=== PATIENT | female | born 1965 | race Caucasian/White ===

== ENCOUNTER → 2018-05-15 | Outpatient (CLI) | payer BC ==
--- NOTE | 2018-05-15 20:26 | Diagnostic Imaging Report ---
INDICATION: Right breast carcinoma. This study is performed to evaluate the left breast. Correlation is made with left breast diagnostic mammogram earlier the same day. FINDINGS: Sonographic interrogation of the upper-outer left breast was performed. There is a somewhat ill-defined hypoechoic nodule at the 2 o'clock location of the left breast approximately 6 cm from the nipple. This measures 3 mm x 5 mm. No definite internal blood flow is identified; however, lesion does appear to be slightly taller than it is wide. No significant posterior acoustic enhancement is seen. No other abnormalities are identified. IMPRESSION: Hypoechoic nodule at the 2 o'clock location of the left breast, 6 cm from the nipple. This likely accounts for the nodular density noted mammographically. This cannot be characterized as purely benign and therefore small breast neoplasm cannot be entirely excluded. Tissue sampling could be performed. ACR BI-RADS Category 4: Suspicious abnormality. Dictated by: Dictated on workstation # [id number]
--- NOTE | 2018-05-15 20:44 | Diagnostic Imaging Report ---
INDICATION: Right breast carcinoma. COMPARISON: No prior studies are available for comparison. EXAMINATION: Unilateral left 2D and 3D diagnostic mammography was performed with CAD. This included conventional CC, MLO, and 90-degree lateral views. In addition, exaggerated CC as well as spot compression MLO and exaggerated CC views were obtained. FINDINGS: There is a fairly well-circumscribed nodular density in the upper-outer left breast at posterior depth, approximately 8-9 cm from the nipple. No other masses are seen. There are benign calcifications. No suspicious microcalcifications are seen. The left axilla is unremarkable. IMPRESSION: Circumscribed nodular density in upper-outer left breast at posterior depth. This has fairly benign features and may represent an intraparenchymal lymph node. Further evaluation of this area with ultrasound is recommended and will be performed today. ACR BI-RADS Category 0: Incomplete. (Needs additional imaging evaluation). Result letter will be mailed to the patient. Note: At least 10% of breast cancer is not imaged by mammography. Dictated by: Dictated on workstation # [id number]
== END ==
LOC: RAD 13:15
PROVIDERS: ATTEND Internal Medicine Hematology & Oncology
DX: C50.911 Malignant neoplasm of unspecified site of right female breast (principal); N63.21 Unspecified lump in the left breast, upper outer quadrant; N63.10 Unspecified lump in the right breast, unspecified quadrant
CPT/HCPCS: 76642

== ENCOUNTER → 2018-05-19 | Outpatient (CLI) | payer BC ==
[~2018-05-19] MED LIST: CATHETER FLUSH 10 ML SYR IV PRN
[2018-05-19 12:20] LABS: BASOPHILS # (AUTO) 0.1 10^3/uL (0.0-0.1); BASOPHILS % (AUTO) 1 % (0-10); EOSINOPHILS % (AUTO) 0 % (0-10); HEMATOCRIT 39 % (35-52); HEMOGLOBIN 12.9 G/DL (11.5-16.0); LYMPHOCYTES # (AUTO) 1.5 X 10^3 (1.0-4.0); LYMPHOCYTES % (AUTO) 15 % (12-44); MEAN CORPUSCULAR HEMOGLOBIN 28 PG (25-34); MEAN CORPUSCULAR HGB CONC 33 G/DL (32-36); MEAN CORPUSCULAR VOLUME 85 FL (80-99); MONOCYTES # (AUTO) 0.8 X 10^3 (0.0-1.0); MONOCYTES % (AUTO) 8 % (0-12); NEUTROPHILS # (AUTO) 7.9 X 10^3 (1.8-7.8); NEUTROPHILS % (AUTO) 77 % (42-75); PLATELET COUNT 545 10^3/uL (130-400); WHITE BLOOD COUNT 10.2 10^3/uL (4.3-11.0)
--- NOTE | 2018-05-19 15:02 | Diagnostic Imaging Report ---
PROCEDURE: CT chest with contrast, CT abdomen and pelvis with and without contrast. TECHNIQUE: Pre and post intravenous contrast axial imaging of the abdomen and pelvis and post contrast axial imaging of the chest were performed. Auto Exposure Controls were utilized during the CT exam to meet ALARA standards for radiation dose reduction. INDICATION: Breast carcinoma. CT CHEST: There is a large mass involving the right breast which extends to the skin surface and appears to be causing skin ulceration. This measures approximately 7.0 x 4.7 cm. Enlarged lymph nodes in the right axilla are noted, largest measuring 3.5 x 1.9 cm. No internal mammary lymphadenopathy is seen. The left axilla is unremarkable. Large right paratracheal lymph node measures 2.5 x 1.6 cm. Left hilum is unremarkable. There is irregular mass-like density in the right upper lobe extending to the right hilum measuring 5.3 x 4.9 cm. This is likely combination of a right hilar mass with postobstructive pneumonitis. Subcarinal fullness is also present with subcarinal node measuring 2.8 x 1.2 cm. There appears to be subsegmental atelectasis both lung bases. Trace pleural fluid is seen bilaterally. No pericardial fluid is identified. Evaluation of bony structures demonstrates innumerable lytic lesions. A lytic lesion of a sternum. There are osteolytic lesions throughout the thoracic spine as well as numerous bilateral ribs. IMPRESSION: 1. Large right breast mass. There is a right axillary lymphadenopathy as well as mediastinal and right hilar lymphadenopathy resulting in postobstructive pneumonitis in the right upper lobe. There are new innumerable osteolytic lesions throughout the thoracic spine bilateral ribs and sternum. Features are consistent with right breast carcinoma and metastatic disease. CT ABDOMEN AND PELVIS: Liver contains innumerable low-density masses consistent with hepatic metastatic disease. Largest lesion is in the right lobe proximal to 4.6 x 4.3 cm. Pancreas and spleen are unremarkable. No definite adrenal mass is seen. Kidneys are unremarkable. Aorta is non-aneurysmal. There are some prominent lymph nodes in the central retroperitoneum left para-aortic region. Left para-aortic node measures 1.5 x 1.0 cm. Bowel loops are normal caliber. No free fluid in abdomen is seen. There is some free fluid in the pelvis. No definite inguinal lymphadenopathy is seen. There appear to be some prominent external iliac lymph nodes. Bony structures demonstrate innumerable osteolytic lesions throughout the lumbar spine as well as involving the bony pelvis including the sacrum. There are osteolytic lesions involving the femoral heads and necks bilaterally. IMPRESSION: 1. Numerous hepatic lesions consistent with hepatic metastatic disease. There is central retroperitoneal lymphadenopathy suggestive of metastatic disease. Innumerable osteolytic lesions throughout the lumbar spine, pelvis and bilateral hips is noted consistent with osseous metastatic disease. Dictated by: Dictated on workstation # [id number]
--- NOTE | 2018-05-19 17:11 | Diagnostic Imaging Report ---
INDICATION: Whole body pain. Patient has right breast mass. TECHNIQUE: Patient was administered 26.8 mCi F-18 FDG intravenously and whole body imaging was performed after a three-hour delay. COMPARISON: No prior bone scan is available for comparison. FINDINGS: There is uptake of activity by the axial and appendicular skeleton. There is uptake by both kidneys with excretion into the urinary bladder. Innumerable foci of abnormal tracer accumulation are seen. There is abnormal uptake within the calvarium as well as bilateral ribs, thoracic and lumbar spine, as well as the bony pelvis. There are abnormal foci within the bilateral femora. Features are most consistent with osseous metastatic disease. This does correlate with multiple osteolytic lesions noted on CT study earlier the same day. IMPRESSION: Findings consistent with osseous metastatic disease. Dictated by: Dictated on workstation # [id number]
== END ==
LOC: CARD 12:00
PROVIDERS: ATTEND Internal Medicine Hematology & Oncology
DX: C50.911 Malignant neoplasm of unspecified site of right female breast (principal); M54.9 Dorsalgia, unspecified; M89.9 Disorder of bone, unspecified; K76.9 Liver disease, unspecified
CPT/HCPCS: 36415; 71260; 74178; 78306; 85025

== ENCOUNTER 2018-05-22 08:22 | Day surgery (SDC) | payer BC ==
[~2018-05-22] VITALS: Ht 168.9 cm; Wt 66.5 kg
[2018-05-22] MEDS ORDERED: ceFAZolin 2 GM IV Premixed 50 ML ONE (08:56)
[2018-05-22] MEDS ORDERED: 0.9% SODIUM CHLORIDE PF INJ 20 ML VIAL ONE (08:57)
[2018-05-22] MEDS ORDERED: LIDOCAINE 1% INJ 20 ML 20 ML VIAL ONE (08:57)
[2018-05-22] MEDS ORDERED: HEParin (CENTRAL IV FLUSH) 500 UNIT/5 ML SYR ONE (08:57)
[2018-05-22] MEDS ORDERED: BUP/EPI 0.5% 1:200,000 (SENSORCAINE) 30 ML VIAL ONE (08:57)
[2018-05-22] MEDS ORDERED: LACTATED RINGERS 1,000 ML IV PRN (08:59)
[2018-05-22] MEDS ORDERED: MIDAZOLAM 2 MG/2 ML (VERSED) VIAL IV ONE (09:00)
[2018-05-22] MEDS ORDERED: MIDAZOLAM 2 MG/2 ML (VERSED) VIAL ONE (09:16)
[2018-05-22] MEDS ORDERED: LIDOCAINE PF 2% 5 ML (XYLOCAINE) VIAL ONE (09:16)
[2018-05-22] MEDS ORDERED: proPOfol 200 MG/20 ML (DIPRIVAN) VIAL IV ONE (09:16)
[2018-05-22] MEDS ORDERED: ceFAZolin 2 GM IV Premixed 50 ML IV ONE (09:30)
[2018-05-22] MEDS ORDERED: HYDR-3820 PO (10:09)
--- NOTE | 2018-05-22 10:09 | Progress Note-Post Operative ---
Post-Operative Progess Note Surgeon (s)/Carry Out Clerk (s) Surgeon RADHA CORREIA DO Carry Out Clerk: none Pre-Operative Diagnosis Venous Insufficiency, Right Breast CA Post-Operative Diagnosis Same Procedure & Operative Findings Date of Procedure 05/22/18 Procedure Performed/Findings Kendrick-cath insertion Anesthesia Type IV sedation by Anesthesia Estimated Blood Loss Estimated blood loss (mL): less than 5ml Specimens/Packing Specimens Removed none RADHA CORREIA DO May 22, 2018 10:08
--- NOTE | 2018-05-22 10:10 | Discharge Inst-Surgical ---
Discharge Inst-Surgical Depart Medication/Instructions New, Converted or Re-Newed RX: RX Given to Pt/Family Patient Instructions Follow up Appt: Make appointment for 1 week. [phone] Instructions: No lifting greater than 20 pounds. No strenuous activity. May shower in 24 hours, no tub bath or soaking. Use incentive spirometer at home as directed. No Smoking Skin/Wound Care: May remove bandages in am. You need to leave the Dermabond on incision it will fall off on it's own. Symptoms to Report: Appetite Changes, Extremity Discoloration, Numbness/Tingling, Swelling Increased , Bleeding Excessive, Eyesight Changes, Pain Increased, Urine Color Change, Constipation(Persistent), Fever over 101 degree F, Pain/Pressure in chest, Urinating Difficulty, Cough Up/Vomit Blood, Heart Beat Irreg/Pounding, Pain/ Pressure in jaw, Cramps in feet or legs, Lightheadedness, Pain/Pressure in shoulder, Diarrhea(Persistent), Memory Changes Suddenly, Questions/Concerns, Weight gain consecutive days, Dizziness/Fainting, Nausea/Vomiting, Shortness of Breath, Weight gain over 2 pounds If questions or concerns contact your physician Or seek help at emergency department. Activity Activity as Tolerated: Yes Driving Instructions: No Driving/Refer to Dr. Bowden Discharge Diet: No Restrictions Diet After 24 Hours: Clear Liquid if Nauseous If Any Problems/Questions/Issu: Contact Your Physician, Go to Emergency Room Skin/Wound Care Infection Signs and Symptoms: Increased Redness, Foul Odor of Wound, Increased Drainage, Skin Itchy or Has a Rash, Increased Swelling, Temperature Above 101 F Bathing Instructions: Shower Stitches/[place]/Dermabond Dis: Dermabond Ice Pack: Ice On and Off Site RADHA CORREIA DO May 22, 2018 10:10
[2018-05-22] MEDS ORDERED: morphine INJ 10 MG/ML 1ML (SYR OR VIAL) IVP ONE (10:15)
[2018-05-22] MEDS ORDERED: ONDANSETRON 4 MG/2 ML (SDV) Z0FRAN IVP PRN (10:15)
[2018-05-22 10:19] VITALS: BP 115/72
[2018-05-22 10:40] VITALS: BP 118/80
--- NOTE | 2018-05-22 10:43 | Diagnostic Imaging Report ---
INDICATION: Undergoing line placement.. TECHNIQUE: Single intraprocedural images left upper chest CORRELATION STUDY: None FINDINGS: Intraprocedure fluoroscopy utilized by Dr. Castillo. No radiologist present. Fluoroscopy utilized during placement of a left subclavian Gorohe-i-Ennb catheter. The tip over the right paranasal region. There is additional linear tube like density over the of the axilla just lateral to the scapula. Fluoroscopy Time: 4 seconds IMPRESSION: 1. Fluoroscopy utilized for placement left subclavian chest port catheter. 2. Additional tubular-like density of the left axillary region, nonspecific etiology or significance. Dictated by: Dictated on workstation # [id number]
[2018-05-22 11:10] VITALS: BP 116/78
[2018-05-22 11:40] VITALS: BP 120/71
[2018-05-22 12:10] VITALS: BP 120/71
--- NOTE | 2018-05-22 13:47 | Anesthesia-General Post-Op ---
General Patient Condition Mental Status/LOC: Same as Preop Cardiovascular: Satisfactory Nausea/Vomiting: Absent Respiratory: Satisfactory Pain: Controlled Complications: Absent Post Op Complications Complications None Follow Up Care/Instructions Patient Instructions None needed. Anesthesia/Patient Condition Patient Condition Patient is doing well, no complaints, stable vital signs, no apparent adverse anesthesia problems. No complications reported per nursing. MELISA DEL TORO CRNA May 22, 2018 13:47
--- NOTE | 2018-05-22 17:31 | OPERATIVE REPORT ---
DATE OF SERVICE: 05/22/2018 PREOPERATIVE DIAGNOSES: 1. Venous insufficiency. 2. Right breast cancer. POSTOPERATIVE DIAGNOSES: 1. Venous insufficiency. 2. Right breast cancer. PROCEDURE: Insertion of Port-A-Cath left anterior chest wall, left subclavian vein. SURGEON: Abhijit Castillo DO CAREER DEVELOPMENT CONSULTANT: None. ANESTHESIA: IV sedation by the anesthesiologist. SPECIMENS: None. BLOOD LOSS: Less than 5 mL. FLUIDS: Per anesthesia. POSTOPERATIVE CONDITION: Stable. INDICATION FOR PROCEDURE: The patient is a 53-year-old female, who unfortunately has metastatic breast cancer and needs a Port-A-Cath placed for long-term chemotherapy secondary to venous insufficiency. FINDINGS: The patient had Port-A-Cath placed in the left anterior chest wall, left subclavian vein. PROCEDURE NOTE: After informed consent was obtained, the patient was brought to the operating room, placed on table in supine position. She was sterilely prepped and draped in normal fashion. Local lidocaine was used to infiltrate the skin in left anterior chest wall towards the clavicle as well as in the area to create a pocket for the port. She was placed slightly Trendelenburg and then an 18-gauge fine needle was advanced with negative inspiration and cannulated the left subclavian vein on the first attempt. Good flash of blood, removed the syringe, placed a guidewire down the needle using Seldinger technique, it went in easily, checked fluoroscopy, it was in good position. It was actually in the heart, clamped this in place. I made a stab incision with #11 blade along the guidewire and then in the left anterior chest wall made another incision with #11 blade, carried down through skin into subcutaneous tissue, then deepened down to subcutaneous tissue with Bovie electrocautery down to the fascia of the pectoralis muscle and created a pocket bluntly as well for the port. Then, tunneled a tunnel from the stab incision into this pocket and then over the guidewire placed a dilator using Seldinger technique, checked with fluoroscopy, it was in good position, removed the inner portion of the dilator as well as the guidewire and then placed the catheter down the dilator sheath using the Seldinger technique, it went in easily, checked with fluoroscopy, it was in good position. Cut the catheter attached to the port and then placed a locking mechanism, placed the port into the pocket previously created, sutured in place with 3-0 Prolene suture and then accessed the port with a Salomon needle, got a good flash of blood, then easily flushed with saline and then aspirated and flushed easily with 2 mL of heparin. I then took another picture of fluoroscopy. There was no band or kink and the catheter appeared to be in good position. I then closed the incision closing the deep tissue with 3-0 Vicryl, 2 interrupted suture and I then closed the skin with 4-0 undyed Monocryl with 3 interrupted subcuticular stitches and then closed the stab incision with a single interrupted 4-0 undyed Monocryl subcuticular stitch. Area was cleaned and dried. Dermabond was placed as well as then a pressure dressing. The patient tolerated the procedure and she was then transferred to recovery room in stable condition. Sponge, instrument and needle count were correct at the end of the case. Job ID: [id number] DocumentID: [id number] Dictated Date: 05/22/2018 10:07:48 Console Assembler Date: 05/22/2018 17:30:49 Dictated By: DO CHANTAL STALLINGS
== END 2018-05-22 12:10 | disposition home or self-care (01) ==
LOC: EDBD → SDC 08:22
PROVIDERS: ATTEND Surgery
DX: I87.2 Venous insufficiency (chronic) (peripheral) (principal); C50.411 Malignant neoplasm of upper-outer quadrant of right female breast; C79.51 Secondary malignant neoplasm of bone; C78.7 Secondary malignant neoplasm of liver and intrahepatic bile duct; Z17.0 Estrogen receptor positive status [ER+]
CPT/HCPCS: 87081; 94664

== ENCOUNTER → 2018-05-27 | Outpatient (CLI) | payer BC ==
[~2018-05-27] MED LIST changes: -CATHETER FLUSH 10 ML SYR IV PRN; +HYDR-3820 PO
--- NOTE | 2018-05-27 12:18 | Diagnostic Imaging Report ---
PROCEDURE: MRI lumbar spine. TECHNIQUE: Multiplanar, multisequence MRI of the lumbar spine was performed without contrast. INDICATION: Breast carcinoma with bone metastases. Patient complains of back pain as well as weakness. Studies performed for further evaluation. COMPARISON: No prior studies are available for comparison. FINDINGS: There are innumerable marrow replacing lesions at all levels of the lumbar spine as well as the sacrum. There is involvement of vertebral bodies as well as posterior elements. There is also involvement of the visualized portions of the pelvis and sacrum. Many of the lesions are somewhat expansile. Vertebral body heights are maintained without evidence of an acute compression fracture. There is some generalized degenerative disc disease. The conus is unremarkable at the L1 level. T12-L1: There is some expansile tumor within the right and posterior aspect of the T12 vertebral body. This does produce some slight extension posteriorly indenting the right ventral aspect of the thecal sac but no significant canal narrowing is seen. There is involvement of the right pedicle at this level as well. No central canal or neural foraminal narrowing is seen. L1-L2: Central canal and neural foramina are patent. L2-L3: Unremarkable. L3-L4: Unremarkable. L4-L5: There is some mild wide-based disc bulge indenting the ventral thecal sac but no significant central canal or neural foraminal narrowing is seen. L5-S1: Central canal and neural foramina are unremarkable. Paraspinous tissues demonstrate numerous lesions in the liver. IMPRESSION: Diffuse osseous metastatic disease involving the lumbar spine, sacrum and bony pelvis. No definite central canal or neuroforaminal involvement by tumor is identified. Dictated by: Dictated on workstation # [id number]
--- NOTE | 2018-05-27 12:20 | Diagnostic Imaging Report ---
INDICATION: Breast carcinoma and back pain with bone metastases. The study is performed to evaluate for cord compression. TECHNIQUE: Multiplanar and multisequence imaging of the thoracic spine was performed without contrast. FINDINGS: Study is significantly compromised by patient motion. There are innumerable marrow-replacing lesions at all levels of the lower cervical and thoracic spine, consistent with osseous metastatic disease. There appears to be significant compression deformity involving the T5 vertebral body which is vertebra plana. Abnormal soft tissue tumor extension is seen posteriorly into the central canal. Tumor extension posteriorly into the canal measures 2.5 cm cephalocaudal x 1.1 cm AP x approximately 2.6 cm transverse. This does contact the thoracic spinal cord and displaces the spinal cord posteriorly. No definite signal changes within the spinal cord are identified. Spinal canal is significantly narrowed however at this level to approximately 4 mm AP diameter. There is tumor involvement involving the posterior elements at numerous levels throughout the thoracic spine but no other levels of central canal involvement are seen. IMPRESSION: Diffuse osseous metastatic disease. There is compression fracture of T5 vertebral body with soft tissue tumor extension beyond the T5 vertebral body posteriorly into the central canal. Tumor does impress the spinal cord at this level and displaces the spinal cord posteriorly. Severe narrowing of the central canal is noted at 4 mm AP diameter. No definite signal changes within the cord are identified at this time. Dictated by: Dictated on workstation # [id number]
--- NOTE | 2018-05-27 13:05 | Diagnostic Imaging Report ---
INDICATION: Bone metastases. TIME OF EXAM: 12:15 p.m. EXAMINATION: Multiple views of bilateral humeri were obtained. FINDINGS: Alignment at the shoulder and elbow appears normal bilaterally. There are small lucencies identified in the proximal shafts of both humeri suspicious for osteolytic lesions. No pathologic fracture is identified however. IMPRESSION: Small lucencies bilaterally, suspicious for osteolytic metastatic disease. No pathologic fracture is detected. Dictated by: Dictated on workstation # [id number]
--- NOTE | 2018-05-27 13:18 | Diagnostic Imaging Report ---
INDICATION: Bone metastases. Time of exam 12:08 PM Multiple views bilateral femora were obtained. There is an ill-defined osteolytic lesion involving the midshaft of the right femur measuring approximately 5 cm in size. This is consistent with a metastatic lesion. There is endosteal scalloping present. No definite periosteal reaction or bony destructive changes are seen. No pathologic fracture is seen. Remainder of the femora do show some occasional very small lucencies in the proximal aspects bilaterally, indeterminate. Alignment at both hips and knees appear normal. There is a lucency in the bony pelvis bilaterally as well suggestive of osteolytic metastases. IMPRESSION: Dominant ill-defined osteolytic lesion of the midshaft right femur with endosteal scalloping. This is consistent with a osteolytic metastasis. No pathologic fracture is identified. There are additional smaller indeterminate lucencies bilaterally as well which may represent metastatic lesions. Dictated by: Dictated on workstation # [id number]
--- NOTE | 2018-05-27 14:28 | Diagnostic Imaging Report ---
PROCEDURE: MR imaging cervical spine without contrast. TECHNIQUE: Multiplanar/multisequence MR imaging of the cervical spine was performed without contrast. INDICATION: Breast cancer with history of metastatic disease to bone. Now complaining of neck pain. FINDINGS: Multiple marrow lesions involving vertebral bodies and posterior elements correlate with areas of abnormal uptake on the bone scan of 05/19/2018 and are consistent with multifocal metastatic disease. Lesions involve the left occipital condyle, right C1 lateral mass, right C2 lateral mass, C2 posterior elements, C3 vertebral body, C6 vertebral body eccentric to the left, and the C7 body as well as multiple upper thoracic levels. There is a pathological fracture at the T3 level with at least mild retropulsion. At the very caudal margin of the [id number] posterior to the T4 vertebral body, there is retropulsion of the cortices and likely ventral epidural extension of tumor which impinges upon and flattens the cord at that level. A dedicated thoracic MRI is recommended as further evaluation and, if tolerable, the administration of IV contrast would assist in evaluating the intracanalicular suspected tumor. Within the cervical spine, there is no cord compression or high-grade stenosis. Degenerative disc bulge and endplate osteophytes mildly narrow the canal at C3-4, moderately stenose the canal at C5-6, and mildly stenose the canal at C6-C7. IMPRESSION: 1. Multi-level cervical metastatic disease, presumed without pathological cervical fracture or cervical cord compression. 2. Extensive involvement of the partially visualized upper thoracic spine with suspicion for cord compression at the T4 and T5 levels extending below the [id number]. A dedicated thoracic MRI spine with and without contrast is recommended. 3. I have left a message on the ordering physician's phone mail service and will continue to call to ensure his receipt of this report. Dictated by: Dictated on workstation # [id number]
== END ==
LOC: RAD 10:53 → EDBD 10:53
PROVIDERS: ATTEND Radiology Radiation Oncology
DX: C79.51 Secondary malignant neoplasm of bone (principal); C50.811 Malignant neoplasm of overlapping sites of right female breast; S22.050A Wedge compression fracture of T5-T6 vertebra, initial encounter for closed fracture; M48.04 Spinal stenosis, thoracic region; D36.7 Benign neoplasm of other specified sites; M89.9 Disorder of bone, unspecified
CPT/HCPCS: 72141; 72146; 72148

== ENCOUNTER → 2018-05-29 | Outpatient (CLI) | payer BC ==
[~2018-05-29] MED LIST changes: +GADOBUTROL 7.5 MMOL/7.5 ML (GADAVIST) VIAL IV ONE
--- NOTE | 2018-05-29 14:13 | Diagnostic Imaging Report ---
PROCEDURE: MR imaging of the brain with and without contrast. TECHNIQUE: Multiplanar, multisequence MR imaging of the brain was performed with and without contrast. INDICATION: Breast carcinoma with metastases. COMPARISON: No prior studies are available for comparison. FINDINGS: Ventricles and sulci are within normal limits. No sulcal effacement, midline shift or hemorrhage is detected. There is no diffusion restriction identified. Normal expected flow-voids within the carotid siphons are seen. No abnormal enhancement intracranially is identified. There are no findings to suggest intracranial metastatic disease. Corpus callosum is unremarkable. Sella and parasellar structures are unremarkable. There are occasional regions of calvarial enhancement, likely representing calvarial metastases. Note is made of an enhancing nodule in the anterior left nasal cavity measuring 16 mm, indeterminate. IMPRESSION: 1. No evidence of intracranial metastatic disease. There are patchy regions of calvarial enhancement suggestive of calvarial metastatic lesions. 2. Circumscribed enhancing soft tissue nodule in the anterior left nasal cavity, indeterminate. Direct visualization clinically is recommended. Dictated by: Dictated on workstation # [id number]
== END ==
LOC: EDBD → RAD 12:39
PROVIDERS: ATTEND Radiology Radiation Oncology
DX: C50.811 Malignant neoplasm of overlapping sites of right female breast (principal); C79.51 Secondary malignant neoplasm of bone; J34.89 Other specified disorders of nose and nasal sinuses
CPT/HCPCS: 70553

== ENCOUNTER 2018-06-08 13:43 | Outpatient (RCR) | payer BC ==
[2018-05-14 09:55] LABS: BASOPHILS % (AUTO) 0 % (0-10); EOSINOPHILS # (AUTO) 0.1 10^3/uL (0.0-0.3); EOSINOPHILS % (AUTO) 1 % (0-10); HEMATOCRIT 40 % (35-52); HEMOGLOBIN 12.8 G/DL (11.5-16.0); LYMPHOCYTES # (AUTO) 1.7 X 10^3 (1.0-4.0); LYMPHOCYTES % (AUTO) 19 % (12-44); MEAN CORPUSCULAR HEMOGLOBIN 28 PG (25-34); MEAN CORPUSCULAR HGB CONC 32 G/DL (32-36); MEAN CORPUSCULAR VOLUME 86 FL (80-99); MEAN PLATELET VOLUME 10.2 FL (7.4-10.4); MONOCYTES # (AUTO) 0.8 X 10^3 (0.0-1.0); MONOCYTES % (AUTO) 9 % (0-12); NEUTROPHILS # (AUTO) 6.3 X 10^3 (1.8-7.8); NEUTROPHILS % (AUTO) 71 % (42-75); PLATELET COUNT 501 10^3/uL (130-400); RED CELL DISTRIBUTION WIDTH 18.7 % (10.0-14.5); WHITE BLOOD COUNT 8.9 10^3/uL (4.3-11.0)
[2018-05-14 10:12] LABS: ALANINE AMINOTRANSFERASE 53 U/L (0-55); ALBUMIN 3.6 GM/DL (3.2-4.5); ALKALINE PHOSPHATASE 985 U/L (40-136); BILIRUBIN,TOTAL 1.9 MG/DL (0.1-1.0); BUN/CREATININE RATIO 20; CALCIUM 12.5 MG/DL (8.5-10.1); CARBON DIOXIDE 22 MMOL/L (21-32); CHLORIDE 98 MMOL/L (98-107); CREATININE SERUM 0.85 MG/DL (0.60-1.30); GFR ESTIMATED > 60; GLUCOSE 112 MG/DL (70-105); POTASSIUM 4.1 MMOL/L (3.6-5.0); SODIUM 133 MMOL/L (135-145); TOTAL PROTEIN 8.3 GM/DL (6.4-8.2)
[2018-06-04 14:04] LABS: BASOPHILS % (AUTO) 0 % (0-10); EOSINOPHILS % (AUTO) 0 % (0-10); HEMATOCRIT 40 % (35-52); HEMOGLOBIN 13.9 G/DL (11.5-16.0); LYMPHOCYTES # (AUTO) 2.2 X 10^3 (1.0-4.0); LYMPHOCYTES % (AUTO) 11 % (12-44); MEAN CORPUSCULAR HEMOGLOBIN 28 PG (25-34); MEAN CORPUSCULAR HGB CONC 35 G/DL (32-36); MEAN CORPUSCULAR VOLUME 81 FL (80-99); MEAN PLATELET VOLUME 10.1 FL (7.4-10.4); MONOCYTES # (AUTO) 1.9 X 10^3 (0.0-1.0); MONOCYTES % (AUTO) 10 % (0-12); NEUTROPHILS # (AUTO) 15.5 X 10^3 (1.8-7.8); NEUTROPHILS % (AUTO) 79 % (42-75); PLATELET COUNT 543 10^3/uL (130-400); RED CELL DISTRIBUTION WIDTH 20.7 % (10.0-14.5); WHITE BLOOD COUNT 19.7 10^3/uL (4.3-11.0)
[2018-06-04 14:23] LABS: ALANINE AMINOTRANSFERASE 129 U/L (0-55); ALBUMIN 3.3 GM/DL (3.2-4.5); ALKALINE PHOSPHATASE 1654 U/L (40-136); BILIRUBIN,TOTAL 4.1 MG/DL (0.1-1.0); BUN/CREATININE RATIO 43; CALCIUM 10.2 MG/DL (8.5-10.1); CARBON DIOXIDE 23 MMOL/L (21-32); CHLORIDE 97 MMOL/L (98-107); CREATININE SERUM 0.65 MG/DL (0.60-1.30); GFR ESTIMATED > 60; GLUCOSE 109 MG/DL (70-105); SODIUM 131 MMOL/L (135-145); TOTAL PROTEIN 7.5 GM/DL (6.4-8.2)
[~2018-06-08] VITALS: Ht 170.2 cm; Wt 64.4 kg
[~2018-06-08 13:43] MED LIST changes: +CTR IV SCH; +DENOSUMAB 120 MG/1.7 ML (XGEVA) SQ SCH; -GADOBUTROL 7.5 MMOL/7.5 ML (GADAVIST) VIAL IV ONE; +NS IV 1000 ML (CANCER CTR) IV SCH; +ONDANSETRON MDV (CANCER CENTER 16 MG, DEXAMETHASONE INJECTION 10 MG in NS (IVPB) CANCER... IV SCH; +PACLITAXEL PROTEIN IV SCH; +diphenhydrAMINE 25 MG TAB (BENADRYL) CANCER CENTER PO SCH; +morphine INJ 4 MG/ML 1 ML (CANCER CTR) IV ONE
== END 2018-08-12 | disposition home or self-care (01) ==
LOC: EDBD → ONC 13:43
PROVIDERS: ATTEND Internal Medicine Hematology & Oncology
DX: C50.411 Malignant neoplasm of upper-outer quadrant of right female breast (principal); Z17.0 Estrogen receptor positive status [ER+]; M54.5 Low back pain; M54.6 Pain in thoracic spine
CPT/HCPCS: 36415; 36591; 77290; 77295; 77300; 77307; 77332; 77334; 77336; 77402; 77417; 77470; 80053; 85025; 96375; 96376; 96413; 99204; 99213; 99214